=== PATIENT | male | born 1985 ===

== ENCOUNTER 2023-03-01 06:50 | Day surgery (SDC) | payer OTHER ==
[2023-02-24 13:17] LABS: HEMATOCRIT 46.6 % (39.0-48.0); HEMOGLOBIN 15.9 g/dL (13-16.00); MEAN CELL VOLUME 87.5 fL (80.0-100.00); MEAN CORPUSCULAR HEMOGLOBIN 29.9 pg (27.00-32.0); MEAN CORPUSCULAR HGB CONC 34.1 g/dl (32.0-36.0); PLATELET COUNT 326 K/uL (150-450); RED BLOOD COUNT 5.33 M/uL (4.00-6.00); RED CELL DISTRIBUTION WIDTH 13.4 % (11.5-14.5)
[2023-02-24 13:20] LABS: PH,URINE 5.5 (5.0-8.0); URINE APPEARANCE Clear; URINE BILIRRUBIN Negative (NEGATIVE); URINE BLOOD Negative; URINE COLOR Yellow; URINE GLUCOSE Negative (NEGATIVE); URINE LEUKOCYTE Negative; URINE NITRATE Negative; URINE PROTEIN Negative (NEGATIVE); URINE UROBILINOGEN 0.2 E.U./dl
[2023-02-24 13:24] LABS: URINE BACTERIA 8.8 uL (0.0-1933); URINE EPITHELIAL CELLS 1.6 uL (0.0-38.8)
[2023-02-24 13:36] LABS: INR 1.02; PARTIAL THROMBOPLASTIN TIME 33.3 SECONDS (22.0-34.0); PROTHROMBIN TIME 10.7 SECONDS (9.0-11.5)
[2023-02-24 13:47] LABS: URINE RBC 0.8 uL (0.0-20.8)
[2023-02-24 13:51] LABS: CALCIUM 9.7 mg/dL (8.5-10.1); CREATININE SERUM 1.11 mg/dL (0.70-1.30); GFR 74.95; POTASSIUM 4.08 mEq/L (3.5-5.1)
[~2023-03-01 06:50] MED LIST: COZAAR50 MG
== END 2023-03-01 16:25 | disposition home or self-care (01) ==
LOC: CIR.AMB 06:50
PROVIDERS: ATTEND Surgery Surgery of the Hand
DX: M67.844 Other specified disorders of tendon, left hand (principal); M20.092 Other deformity of left finger(s); Z88.2 Allergy status to sulfonamides; Z88.1 Allergy status to other antibiotic agents